=== PATIENT | female | born 1980 | race African-American/Black ===

== ENCOUNTER 2016-12-22 09:20 | Day surgery (SDC) | payer BC ==
[~2016-12-22] VITALS: Ht 149.9 cm; Wt 78.5 kg
[2016-12-22] MEDS ORDERED: SODIUM CHLORIDE 0.9% 1,000 ML IV SCH (10:10)
[2016-12-22 10:30] LABS: BASOPHILS % 0.9 % (0.0-2.0); EOSINOPHILS % 2.9 % (0.0-5.0); HEMATOCRIT. 37.1 % (36.0-48.0); HEMOGLOBIN. 12.4 g/dL (12.0-16.0); LYMPHOCYTES % 37.3 % (20.0-50.0); MEAN CORPUSCULAR HEMOGLOBIN 29.6 pg (28.0-32.0); MEAN CORPUSCULAR VOLUME 88.4 fL (81.0-99.0); MEAN PLATELET VOLUME 8.2 fl (7.4-10.4); MONOCYTES % 4.9 % (2.0-8.0); PLATELET 259 x1000/uL (130-400); RED BLOOD CELL COUNT 4.19 mill/uL (4.2-5.4); RED CELL DISTRIBUTION WIDTH 12.5 % (11.6-14.6)
[2016-12-22 10:36] LABS: CLARITY URINE CLEAR (CLEAR); COLOR URINE YELLOW (YELLOW); GLUCOSE URINE NEGATIVE (NEGATIVE); KETONES URINE NEGATIVE (NEGATIVE); LEUKOCYTE ESTERASE URINE NEGATIVE (NEGATIVE); NITRITE URINE NEGATIVE (NEGATIVE); OCCULT BLOOD URINE NEGATIVE (NEGATIVE); PROTEIN URINE NEGATIVE (NEGATIVE); SPECIFIC GRAVITY URINE 1.014 (1.005-1.030); UROBILINOGEN URINE 0.2 E.U./dL (0.2-1.0)
[2016-12-22 10:38] LABS: PARTIAL THROMBOPLASTIN TIME 29.8 sec (23.4-31.0); PROTHROMBIN TIME 10.7 sec (9.4-11.6)
[2016-12-22 11:08] LABS: UCG SCREEN NEGATIVE
[2016-12-22] MEDS ORDERED: FENTANYL CITRATE/PF 50MCG/ML 2ML VIAL ONE (13:36)
[2016-12-22] MEDS ORDERED: LIDOCAINE HCL 1% 20ML VIAL (Pyxis) INJ ONE (13:36)
[2016-12-22] MEDS ORDERED: MIDAZOLAM HCL 2 MG/2 ML VIAL ONE (13:37)
[2016-12-22] MEDS ORDERED: PROPOFOL 200MG/20ML VIAL IV ONE ×2 (13:40→14:54)
[2016-12-22] MEDS ORDERED: SUCCINYLCHOLINE CHLORIDE 200MG/10ML VIAL IV ONE (13:40)
[2016-12-22] MEDS ORDERED: CEFAZOLIN SODIUM 1000MG/VIAL ONE (13:51)
[2016-12-22] MEDS ORDERED: HYDROMORPHONE HCL/PF 2MG/ML (OR) ONE (14:05)
[2016-12-22] MEDS ORDERED: METHYLENE BLUE 50 MG/10 ML AMP IV ONE (14:06)
[2016-12-22] MEDS ORDERED: SKIN ADHESIVE 0.7 GM EA TOP ONE (14:06)
[2016-12-22] MEDS ORDERED: NORMAL SALINE 0.9% 10 ML SYR ONE (14:06)
[2016-12-22] MEDS ORDERED: ONDANSETRON HCL 4MG/2ML VIAL IV PRN (14:45)
[2016-12-22] MEDS ORDERED: HYDROMORPHONE HCL/PF 2MG/ML CPJ IV PRN (14:45)
[2016-12-22] MEDS ORDERED: LABETALOL HCL 20MG/4ML CARPUJECT IV PRN (14:45)
[2016-12-22] MEDS ORDERED: MEPERIDINE HCL/PF 25MG/ML CPJ IV PRN (14:45)
[2016-12-22] MEDS ORDERED: METOCLOPRAMIDE HCL 10MG/2ML VIAL ONE (15:27)
[2016-12-22] MEDS ORDERED: ONDANSETRON HCL 4MG/2ML VIAL ONE (15:27)
[2016-12-22] MEDS ORDERED: DEXAMETHASONE 4MG/ML 1ML VIAL ONE (15:38)
[2016-12-22 17:59] VITALS: BP 181/112
== END 2016-12-22 18:45 | disposition home or self-care (01) ==
LOC: OR 09:20
PROVIDERS: ATTEND Obstetrics & Gynecology Obstetrics
DX: N92.0 Excessive and frequent menstruation with regular cycle (principal); N80.1 Endometriosis of ovary; D25.2 Subserosal leiomyoma of uterus; N73.6 Female pelvic peritoneal adhesions (postinfective); D64.9 Anemia, unspecified; E66.9 Obesity, unspecified
CPT/HCPCS: 36415; 58350; 58558; 81003; 81025; 85025; 85610; 85730; 88304; A4216; G0168; J0330; J0690; J1100; J1170; J2250; J2405; J2765; J3010; J3490; J7030; J2704; Q9968